=== PATIENT | female | born 1945 | race Caucasian/White ===

== ENCOUNTER 2019-05-06 14:46 | Emergency (ER) | payer MEDICARE, SELFPAY ==
[2019-05-06 15:10] VITALS: BP 196/113; PULSE 91; RESP 16; TEMP 36.8; O2SAT 98; BMI 22.4
[2019-05-06 15:48] LABS: Basophils % 0.3 %; Eosinophils % 0.2 %; Hematocrit 42.6 % (37.0-47.0); Hemoglobin 13.6 g/dL (11.5-15.3); Lymphocytes # 1.1 10^3/uL (0.8-4.8); Lymphocytes % 18.8 %; Mean Corpuscular HGB Conc 31.9 g/dL (30.0-36.0); Mean Corpuscular Hemoglobin 29.1 pg (28.0-34.0); Mean Corpuscular Volume 91.2 fL (81-99); Mean Platelet Volume 11.8 fL (7.4-10.4); Monocytes # 0.5 10^3/uL (0.2-0.9); Monocytes % 9.1 %; Neutrophils # 4.2 10^3/uL (1.8-7.7); Neutrophils % 71.4 %; Nucleated Red Blood Cells % 0 %; Platelet Count 178 10^3/cmm (130-400); Red Blood Count 4.67 10^6/uL (4.1-5.3); Red Cell Distribution Width 13.4 % (12.1-15.1); White Blood Count 5.9 10^3/uL (4.0-10.0)
[2019-05-06 16:01] LABS: Alanine Aminotransferase 19 U/L (0-33); Albumin Level 4.6 g/dL (3.5-5.2); Alkaline Phosphatase 122 IU/L (35-105); Anion Gap 16.3 (5-19); Aspartate Amino Transferase 34 U/L (0-32); Blood Urea Nitrogen 20 mg/dL (8-23); Calcium 10.7 mg/dL (8.5-10.5); Carbon Dioxide 28 mmol/L (22-29); Chloride 99 mmol/L (98-107); Globulin 3.3 g/dL (1.3-4.6); Glucose 113 mg/dL (65-115); Potassium 4.3 mmol/L (3.5-5.1); Sodium 139 mmol/L (136-145); Total Bilirubin 0.3 mg/dL (0.15-1.2); Total Protein 7.9 g/dL (6.6-8.7)
[2019-05-06 16:09] LABS: Add Urine Microscopic? YES; Bilirubin Urine Neg (NEGATIVE); Blood Urine 2+ (Negative); Glucose Urine UA Norm (Normal); Ketones Urine Negative (Negative); Leukocyte Esterase Urine Negative (Negative); Nitrate Urine Negative (Negative); Protein Urine Neg (Negative); Urine Appearance Clear (CLEAR); Urine Color Yellow (Yellow); Urobilinogen Urine Norm (Negative); pH Urine 5 (5-7)
[2019-05-06 16:12] LABS: Add Urine Culture? No; Bacteria Urine TRACE; Mucus Urine 1+; RBC Urine 0-4 /hpf (0-2); Squamous Epithelial Cell Urine 0-4 (0-5); WBC Urine 0-4 /hpf (0-5)
[2019-05-06 16:42] VITALS: BP 188/108; PULSE 78; RESP 16; O2SAT 96
--- NOTE | 2019-05-06 16:50 | ECG_ITS ---
Measurements Intervals [place] Rate: 80 P: 52 MI: 163 QRS: 46 QRSD: 86 T: 49 QT: 345 QTc: 398 SINUS RHYTHM No previous ECG available for comparison Electronically Signed On 05-06-2019 20:02:14 8TH GRADE TEACHER by Carson Burris M.D. [email or web address]
--- NOTE | 2019-05-06 16:50 | XRR_ITS ---
PROCEDURE INFORMATION: Exam: XR Chest, 1 View Exam date and time: 05/06/2019 5:45 PM Age: 73 years old Clinical indication: Other: Elevated blood pressure and heart rate; Additional info: Admission TECHNIQUE: Imaging protocol: XR of the chest Views: 1 view. COMPARISON: CR Chest 1 [place] [id number] 08/27/2014 2:50 PM FINDINGS: Lungs: Lungs are well aerated without a focal area of consolidation. Pleural space: Unremarkable. No pleural effusion. No pneumothorax. Heart/Mediastinum: The cardiac silhouette appears enlarged, some of which is magnification related to the AP projection. Bones/joints: Unremarkable. XR/XR chest 1V portable [id number] IMPRESSION: Lungs are well aerated without a focal area of consolidation.
--- NOTE | 2019-05-06 16:56 | ED_ITS ---
Documented by User: KIRTI Patterson 05/06/19 16:59 HPI - General Adult General: Chief complaint: General Medical Stated complaint: Blood pressure is high Time Seen by Provider: 05/06/19 16:49 History of Present Illness: HPI narrative: Patient comes in complains of high blood pressure. No history of high blood pressure does have a sister and dad of heart attack. Patient is on cholesterol medicine. She denies any chest pain shortness of breath. She used to be a smoker quit 10 years ago has not checked her blood pressure a lot a years either MD complaint: htn Onset (ago): hour(s) Severity: mild Associated symptoms: Reports no associated symptoms; Deny chest pain, dyspnea, headache(s), nausea, rash or vomiting Review of Systems Const: Denies: fever, chills or body aches Eyes: Denies: change in vision or blurry vision ENMT: Denies: throat pain or nasal congestion Card: Reports: other (High blood pressure); Denies: chest pain or shortness of breath on exertion Resp: Denies: shortness of breath, productive cough or non-productive cough GI: Denies: abdominal pain, nausea or vomiting Musc: Denies: extremity pain Skin/Breast: Denies: rash Neuro: Denies: headache Psych: Denies: anxiety or depression Eliezer/Lymph: Denies: easy bruising PFSH ED PFSH: Statuses (acute, chronic, etc) shown below reflect problem list status as previously entered and may not be historically accurate Social History Smoking and tobacco status: former smoker Physical Exam Const: COMMON NORMALS: no apparent distress, average body habitus and oriented x3 HENMT: COMMON NORMALS: normocephalic HEAD & SCALP: normal to inspection and normocephalic FACE & SINUS: normal facial exam Eye: COMMON NORMALS: conjunctivae normal GENERAL EYE: normal appearance of both eyes CONJUNCTIVA: Yes conjunctivae normal Neck/C-Spine: COMMON NORMALS: no JVD Chest: COMMONS NORMALS: inspection of chest normal Resp: COMMON NORMALS: normal respiratory effort and clear to auscultation bilaterally AUSCULTATION: clear to auscultation bilaterally Cardio: COMMON NORMALS: no JVD, regular rate and regular rhythm RATE: regular rate RHYTHM: regular rhythm GI: COMMON NORMALS: normal to inspection, nondistended, normoactive bowel sounds Extremity: COMMON NORMALS: normal to inspection and full ROM Neuro: COMMON NORMALS: oriented x3 Course Vital Signs: Vital signs: Vital Signs Temperature 98.2 F 05/06/19 15:10 Pulse Rate 70 05/06/19 18:48 Respiratory Rate 16 05/06/19 18:48 Blood Pressure 136/73 05/06/19 18:48 Pulse Oximetry 98 05/06/19 18:48 [facility] - General Adult Lab Data: Labs: Lab Results 05/06/19 05/06/19 05/06/19 Range/Units 15:15 15:40 15:40 WBC 5.9 (4.0-10.0) 10^3/ uL RBC 4.67 (4.1-5.3) 10^6/u L Hgb 13.6 (11.5-15.3) g/dL Hct 42.6 (37.0-47.0) % MCV 91.2 (81-99) fL MCH 29.1 (28.0-34.0) pg MCHC 31.9 (30.0-36.0) g/dL RDW 13.4 (12.1-15.1) % Plt Count 178 (130-400) 10^3/c mm MPV 11.8 H (7.4-10.4) fL Neut % (Auto) 71.4 % Lymph % (Auto) 18.8 % Jones % (Auto) 9.1 % Eos % (Auto) 0.2 % Baso % (Auto) 0.3 % Neut # (Auto) 4.2 (1.8-7.7) 10^3/u L Lymph # (Auto) 1.1 (0.8-4.8) 10^3/u L Jones # (Auto) 0.5 (0.2-0.9) 10^3/u L Eos # (Auto) 0.0 (0.0-0.8) 10^3/u L Baso # (Auto) 0.0 (0.0-0.1) 10^3/u L Nucleated RBC % (a uto) 0 % Nucleated RBCs # 0.0 /100WBC Sodium 139 (136-145) mmol/L Potassium 4.3 (3.5-5.1) mmol/L Chloride 99 (98-107) mmol/L Carbon Dioxide 28 (22-29) mmol/L Anion Gap 16.3 (5-19) BUN 20 (8-23) mg/dL Creatinine 0.9 (0.5-0.9) mg/dL Glucose 113 (65-115) mg/dL Calcium 10.7 H (8.5-10.5) mg/dL Total Bilirubin 0.3 (0.15-1.2) mg/dL AST 34 H (0-32) U/L ALT 19 (0-33) U/L Alkaline Phosphata se 122 H (35-105) IU/L Total Protein 7.9 (6.6-8.7) g/dL Albumin 4.6 (3.5-5.2) g/dL Globulin 3.3 (1.3-4.6) g/dL Urine Color Yellow (Yellow) Urine Appearance Clear (CLEAR) Urine pH 5 (5-7) Ur Specific Gravit y 1.020 (1.005-1.030) Urine Protein Neg (Negative) Urine Glucose (UA) Norm (Normal) Urine Ketones Negative (Negative) Urine Occult Blood 2+ H (Negative) Urine Nitrate Negative (Negative) Urine Bilirubin Neg (NEGATIVE) Urine Urobilinogen Norm (Negative) mg/dL Ur Leukocyte Sandra ase Negative (Negative) Urine RBC 0-4 H (0-2) /hpf Urine WBC 0-4 H (0-5) /hpf Ur Squamous Epith Cells 0-4 H (0-5) Urine Bacteria Trace (NONE) Urine Mucus 1+ Discharge Plan Discharge Patient Disposition: Home, Self-Care Clinical Impression: Hypertension Qualifiers: Hypertension type: essential hypertension Qualified Code(s): I10 - Essential (primary) hypertension Condition: Stable Prescriptions: New hydrochlorothiazide 25 mg tablet 25 mg PO DAILY Qty: 30 RF: 0 No Action tizanidine 4 mg tablet 4 mg PO TID PRN (Reason: Pain) RF: 0 naproxen sodium 220 mg Capsule 220 mg PO BID PRN (Reason: Pain) RF: 0 Discharge Orders: Discharge Order (Routine); Ordered 05/06/19 Ordered By: Tony Boone Referrals: Pipo Rocha DO [Family Provider] - Discharge Diet: Regular Discharge Activity: Resume usual activity Patient Instructions: Hypertension (ED) Activity Restrictions/Additional Instructions: Follow-up with PCP in 7 days for reevaluation. Take prescription of hydrochlorothiazide as prescribed. Take your blood pressure multiple times a day and keep a log. Teacher and drink plenty of fluids and stay hydrated. Discharge Date/Time: 05/06/19 18:49 Sign Out Sign Out Data: Patient Sign Out occurred on 05/06/19 at 17:10. Patient's care was discussed, and care was transferred from to CIRA Golden. Coding Level of Care Code ED Director Of Strategic Sourcing for Chg Fwd Exam Problem Focused Documented by User: CIRA Golden 05/07/19 02:47 HPI - General Adult General: Chief complaint: General Medical Stated complaint: Blood pressure is high Time Seen by Provider: 05/06/19 16:49 PFSH ED PFSH: Statuses (acute, chronic, etc) shown below reflect problem list status as previously entered and may not be historically accurate Social History Smoking and tobacco status: former smoker Course Vital Signs: Vital signs: Vital Signs Temperature 98.2 F 05/06/19 15:10 Pulse Rate 70 05/06/19 18:48 Respiratory Rate 16 05/06/19 18:48 Blood Pressure 136/73 05/06/19 18:48 Pulse Oximetry 98 05/06/19 18:48 MDM - General Adult Lab Data: Attestation: I reviewed the patient's lab results. Labs: Lab Results 05/06/19 05/06/19 05/06/19 Range/Units 15:15 15:40 15:40 WBC 5.9 (4.0-10.0) 10^3/ uL RBC 4.67 (4.1-5.3) 10^6/u L Hgb 13.6 (11.5-15.3) g/dL Hct 42.6 (37.0-47.0) % MCV 91.2 (81-99) fL MCH 29.1 (28.0-34.0) pg MCHC 31.9 (30.0-36.0) g/dL RDW 13.4 (12.1-15.1) % Plt Count 178 (130-400) 10^3/c mm MPV 11.8 H (7.4-10.4) fL Neut % (Auto) 71.4 % Lymph % (Auto) 18.8 % Jones % (Auto) 9.1 % Eos % (Auto) 0.2 % Baso % (Auto) 0.3 % Neut # (Auto) 4.2 (1.8-7.7) 10^3/u L Lymph # (Auto) 1.1 (0.8-4.8) 10^3/u L Jones # (Auto) 0.5 (0.2-0.9) 10^3/u L Eos # (Auto) 0.0 (0.0-0.8) 10^3/u L Baso # (Auto) 0.0 (0.0-0.1) 10^3/u L Nucleated RBC % (a uto) 0 % Nucleated RBCs # 0.0 /100WBC Sodium 139 (136-145) mmol/L Potassium 4.3 (3.5-5.1) mmol/L Chloride 99 (98-107) mmol/L Carbon Dioxide 28 (22-29) mmol/L Anion Gap 16.3 (5-19) BUN 20 (8-23) mg/dL Creatinine 0.9 (0.5-0.9) mg/dL Glucose 113 (65-115) mg/dL Calcium 10.7 H (8.5-10.5) mg/dL Total Bilirubin 0.3 (0.15-1.2) mg/dL AST 34 H (0-32) U/L ALT 19 (0-33) U/L Alkaline Phosphata se 122 H (35-105) IU/L Total Protein 7.9 (6.6-8.7) g/dL Albumin 4.6 (3.5-5.2) g/dL Globulin 3.3 (1.3-4.6) g/dL Urine Color Yellow (Yellow) Urine Appearance Clear (CLEAR) Urine pH 5 (5-7) Ur Specific Gravit y 1.020 (1.005-1.030) Urine Protein Neg (Negative) Urine Glucose (UA) Norm (Normal) Urine Ketones Negative (Negative) Urine Occult Blood 2+ H (Negative) Urine Nitrate Negative (Negative) Urine Bilirubin Neg (NEGATIVE) Urine Urobilinogen Norm (Negative) mg/dL Ur Leukocyte Sandra ase Negative (Negative) Urine RBC 0-4 H (0-2) /hpf Urine WBC 0-4 H (0-5) /hpf Ur Squamous Epith Cells 0-4 H (0-5) Urine Bacteria Trace (NONE) Urine Mucus 1+ EKG Data^: EKG 1: Attestation: I personally reviewed and interpreted this EKG as follows: EKG interpretation date: 05/06/19 EKG interpretation time: 17:26 Interpretation: normal sinus, 80bpm, no ST elevation or depression. P waves present. Computer generated interpretation: Normal Sinus Discharge Plan Discharge Patient Disposition: Home, Self-Care Clinical Impression: Hypertension Qualifiers: Hypertension type: essential hypertension Qualified Code(s): I10 - Essential (primary) hypertension Condition: Stable Prescriptions: New hydrochlorothiazide 25 mg tablet 25 mg PO DAILY Qty: 30 RF: 0 No Action tizanidine 4 mg tablet 4 mg PO TID PRN (Reason: Pain) RF: 0 naproxen sodium 220 mg Capsule 220 mg PO BID PRN (Reason: Pain) RF: 0 Discharge Orders: Discharge Order (Routine); Ordered 05/06/19 Ordered By: Tony Boone Referrals: Pipo Rocha, [Family Provider] - Discharge Diet: Regular Discharge Activity: Resume usual activity Patient Instructions: Hypertension (ED) Activity Restrictions/Additional Instructions: Follow-up with PCP in 7 days for reevaluation. Take prescription of hydrochlorothiazide as prescribed. Take your blood pressure multiple times a day and keep a log. Teacher and drink plenty of fluids and stay hydrated. Discharge Date/Time: 05/06/19 18:49 Sign Out Sign Out Data: Patient Sign Out occurred on 05/06/19 at 17:10. Patient's care was discussed, and care was transferred from to CIRA Golden. Coding Level of Care Code ED Director Of Strategic Sourcing for Chg Fwd Exam Problem Focused
[2019-05-06 17:15] VITALS: BP 178/99
[2019-05-06] MEDS: cloNIDine 0.1 mg Tablet 0.2 MG PO (17:15)
[2019-05-06 18:48] VITALS: BP 136/73; PULSE 70; RESP 16; O2SAT 98
== END 2019-05-06 18:49 | disposition home or self-care (01) ==
PROVIDERS: Family Medicine; Emergency Provider Physician Assistant; Family Provider Electrodiagnostic Medicine
DX: I10 Essential (primary) hypertension (principal); Z87.891 Personal history of nicotine dependence; Z82.49 Family history of ischemic heart disease and other diseases of the circulatory system
CPT/HCPCS: 36415; 71045; 80053; 81001; 85025; 93005; 99281; 99283

== ENCOUNTER 2019-05-11 03:21 | Emergency (ER) | payer MEDICARE, SELFPAY ==
[2019-05-11 03:29] VITALS: BP 157/82; PULSE 72; RESP 16; TEMP 36.6; O2SAT 99; BMI 22.4
--- NOTE | 2019-05-11 03:40 | ECG_ITS ---
Measurements Intervals [place] Rate: 58 P: 66 HI: 194 QRS: 60 QRSD: 110 T: 59 QT: 445 QTc: 437 SINUS BRADYCARDIA POSSIBLE INFERIOR MYOCARDIAL INFARCTION [30 ms Q WAVE IN II/aVF], OF IN INDETERMINATE AGE Compared to ECG 05/06/2019 17:20:18 Myocardial infarct finding now present Sinus rhythm no longer present Electronically Signed On 05-11-2019 9:13:56 [employer] SPRAYER HELPER by Jose Guadalupe Gramajo M.D. [id number]
--- NOTE | 2019-05-11 03:41 | ED_ITS ---
Entered by Kristina Barrow, acting as scribe for Marlys Johnson Documented by User: Marlys Johnson 05/11/19 05:40 HPI - Nausea/Vomiting/Diarrhea General: Chief complaint: Nausea/Vomiting/Diarrhea Stated complaint: headache/nausea Time Seen by Provider: 05/11/19 03:34 Source: patient and family Mode of arrival: ambulatory History of Present Illness: HPI Narrative: 73 y/o female presents to the ED with complaint of N/V. Pt states she had a syncopal episode around 0100 and now has a CASTRO. Pt states she started a new medication that she thinks has dehydrated her. She denies any injuries from the fall including her headache. She states she just has a mild headache. She denies any injuries, visual changes or otherwise. She started hydrochlorothiazide [address] Rocha. elicited complaint: nausea and vomiting Onset (ago): hour(s) (2) Associated nausea: Yes Associated abdominal pain: No Severity: mild Context: new medication Associated symtoms: Reports headache(s), nausea and syncope; Denies altered mental status, change in vision, chest pain, diaphoresis, dysuria, fatigue, malaise or palpitations Review of Systems General: Reports: other (negative unless marked) Const: Denies: fever, chills, body aches, fatigue, malaise or diaphoresis Eyes: Denies: change in vision or blurry vision ENMT: Denies: throat pain, painful swallowing, hoarseness, ear pain, ear discharge, Change in hearing or nasal discharge Card: Reports: syncope; Denies: chest pain, palpitations, irregular heart rhythm, pre-syncope, shortness of breath on exertion or shortness of breath when lying down Resp: Denies: shortness of breath, productive cough, non-productive cough, wheezing, coughing up blood or chest congestion GI: Reports: nausea; Denies: abdominal pain, vomiting, vomiting blood, coffee grounds in vomit, diarrhea, constipation, cramping, blood in stool or black tarry stool : Denies: flank pain, painful urination, urinary frequency, urinary urgency, decreased urine ouput, urinary incontinence or blood in urine Musc: Denies: neck pain, back pain, extremity pain, extremity swelling, joint pain, joint swelling, joint warmth or joint stiffness Skin/Breast: Denies: rash, skin tenderness or yellow skin Neuro: Reports: headache Eliezer/Lymph: Denies: easy bruising, easy bleeding, petechiae or enlarged lymph nodes All/Imm: Denies: hives, throat swelling, tongue swelling, facial swelling or acute wheezing PFSH ED PFSH: Social History Smoking and tobacco status: former smoker Physical Exam Const: COMMON NORMALS: no apparent distress, oriented x3, no limitations, healthy appearing and well nourished EXAM LIMITATIONS: no altered mental status GENERAL APPEARANCE: cooperative, well kempt and well developed ORIENTATION/CONSCIOUSNESS: Yes awake HENMT: COMMON NORMALS: normocephalic, head/scalp atraumatic, hearing grossly normal bilaterally, external ears normal, EAC's normal and external nose normal HEAD & SCALP: normal to inspection, normocephalic and atraumatic FACE & SINUS: normal facial exam and face symmetric NOSE: external nose normal and nares normal EXTERNAL EAR: Yes external ears normal EXTERNAL AUDITORY CANAL: EAC's normal Eye: COMMON NORMALS: PERRL, EOMs intact bilaterally, conjunctivae normal and no scleral icterus GENERAL EYE: normal appearance of both eyes and normal light reflex CONJUNCTIVA: Yes conjunctivae normal SCLERA: sclerae normal CORNEA: Yes corneas normal PUPIL: Yes PERRL DIRECT OPHTHALMOSCOPY: Yes normal light reflex Neck/C-Spine: COMMON NORMALS: full ROM, no lymphadenopathy, supple, no meningeal signs and no JVD GENERAL: Yes normal visual inspection and Yes trachea midline CERVICAL SPINE: Yes cervical ROM normal Chest: COMMONS NORMALS: inspection of chest normal and palpation of chest normal Resp: COMMON NORMALS: normal respiratory effort, no retractions, no use of accessory muscles and clear to auscultation bilaterally EFFORT & INSPECTION: Yes able to speak in complete sentences AUSCULTATION: clear to auscultation bilaterally Cardio: COMMON NORMALS: no JVD, regular rate, regular rhythm, S1 normal heart sound, S2 normal heart sound, no gallops, no clicks, no murmurs and no rub JUGULAR VENOUS DISTENTION: no JVD RATE: regular rate RHYTHM: regular rhythm HEART SOUNDS: S1 normal and S2 normal GI: COMMON NORMALS: soft to palpation, non-tender, no hepatosplenomegaly and no masses INSPECTION: Yes normal to inspection PALPATION: Yes soft and Yes no hepatosplenomegaly : COMMON NORMALS: Yes no CVA tenderness BLADDER/KIDNEY EXAM: Yes no CVA tenderness Back/Pelvis: COMMON NORMALS: no CVA tenderness, thoracic and lumbar spine normal to inspection, no thoracic nor lumbar tenderness and thoraco-lumbar ROM normal Extremity: COMMON NORMALS: normal to inspection, full ROM, normal capillary refill, no joint enlargement, no clubbing, cyanosis or edema and no calf t enderness Neuro: COMMON NORMALS: oriented x3, CN's II-XII intact bilaterally, moves all extremities, no focal motor deficits and no sensory deficits noted MENINGEAL SIGNS: Yes no meningeal signs Psych: COMMON NORMALS: mental status grossly normal, thought process normal, cooperative, affect normal, speech normal and activity/motor behavior normal APPEARANCE: Yes well kempt SPEECH: Yes normal speech THOUGHT PROCESS: normal thought process Skin: COMMON NORMALS: no rashes or lesions noted, skin turgor normal, no jaundice, no petechiae and no mottling GENERAL SKIN EXAM: no rashes or lesions noted and turgor normal Course Vital Signs: Vital signs: Vital Signs Temperature 98 F 05/11/19 03:29 Pulse Rate 70 05/11/19 07:16 Respiratory Rate 20 H 05/11/19 07:16 Blood Pressure 152/81 05/11/19 07:16 Pulse Oximetry 99 05/11/19 07:16 MDM - Nausea/Vomiting/Diarrhea MDM Narrative: Medical decision making narrative: Zhanna is a nice 73-year-old female who comes in with a syncopal spell after recently starting hydrochlorothiazide. She is orthostatic and slightly hyponatremic. I believe this is likely an acute change so we will give her 2 L normal saline and repeat her orthostatic vital signs. She does not want to go back on the hydrochlorothiazide but agrees to follow-up with Dr. Rocha for reevaluation. She has no chest pain or shortness of breath and is feeling better with IV fluids at this time. Lab Data: Attestation: I reviewed the patient's lab results. Labs: Lab Results 05/11/19 05/11/19 05/11/19 Range/Units 04:06 04:06 04:06 WBC 6.8 (4.0-10.0) 10^3/ uL RBC 4.26 (4.1-5.3) 10^6/u L Hgb 12.7 (11.5-15.3) g/dL Hct 38.5 (37.0-47.0) % MCV 90.4 (81-99) fL MCH 29.8 (28.0-34.0) pg MCHC 33.0 (30.0-36.0) g/dL RDW 12.8 (12.1-15.1) % Plt Count 158 (130-400) 10^3/c mm MPV 12.1 H (7.4-10.4) fL Neut % (Auto) 66.5 % Lymph % (Auto) 21.6 % [place] % (Auto) 9.8 % Eos % (Auto) 1.2 % Baso % (Auto) 0.6 % Neut # (Auto) 4.6 (1.8-7.7) 10^3/u L Lymph # (Auto) 1.5 (0.8-4.8) 10^3/u L [place] # (Auto) 0.7 (0.2-0.9) 10^3/u L Eos # (Auto) 0.1 (0.0-0.8) 10^3/u L Baso # (Auto) 0.0 (0.0-0.1) 10^3/u L Nucleated RBC % (a uto) 0 % Nucleated RBCs # 0.0 /100WBC Sodium 128 L (136-145) mmol/L Potassium 3.5 (3.5-5.1) mmol/L Chloride 88 L (98-107) mmol/L Carbon Dioxide 26 (22-29) mmol/L Anion Gap 17.5 (5-19) BUN 19 (8-23) mg/dL Creatinine 0.6 (0.5-0.9) mg/dL Glucose 134 H (65-115) mg/dL Calculated Osmolal ity (285-295) mOsm/k g Calcium 10.2 (8.5-10.5) mg/dL Total Bilirubin 0.4 (0.15-1.2) mg/dL AST 31 (0-32) U/L ALT 14 (0-33) U/L Alkaline Phosphata se 102 (35-105) IU/L Troponin T Baselin e 8 (0-10) ng/mL Troponin T 120 Min antonella (0-10) ng/mL Delta Troponin T (0-10) ABS# Total Protein 7.1 (6.6-8.7) g/dL Albumin 3.8 (3.5-5.2) g/dL Globulin 3.3 (1.3-4.6) g/dL Lipase 37 (13-60) U/L Urine Color (Yellow) Urine Appearance (CLEAR) Urine pH (5-7) Ur Specific Gravit y (1.005-1.030) Urine Protein (Negative) Urine Glucose (UA) (Normal) Urine Ketones (Negative) Urine Occult Blood (Negative) Urine Nitrate (Negative) Urine Bilirubin (NEGATIVE) Urine Urobilinogen (Negative) mg/dL Ur Leukocyte Sandra ase (Negative) Urine RBC (0-2) /hpf Urine WBC (0-5) /hpf Ur Squamous Epith Cells (0-5) Urine Bacteria (NONE) Hyaline Casts Urine Mucus 05/11/19 05/11/19 05/11/19 Range/Units 05:00 06:24 07:07 WBC (4.0-10.0) 10^3/ uL RBC (4.1-5.3) 10^6/u L Hgb (11.5-15.3) g/dL Hct (37.0-47.0) % MCV (81-99) fL MCH (28.0-34.0) pg MCHC (30.0-36.0) g/dL RDW (12.1-15.1) % Plt Count (130-400) 10^3/c mm MPV (7.4-10.4) fL Neut % (Auto) % Lymph % (Auto) % [place] % (Auto) % Eos % (Auto) % Baso % (Auto) % Neut # (Auto) (1.8-7.7) 10^3/u L Lymph # (Auto) (0.8-4.8) 10^3/u L [place] # (Auto) (0.2-0.9) 10^3/u L Eos # (Auto) (0.0-0.8) 10^3/u L Baso # (Auto) (0.0-0.1) 10^3/u L Nucleated RBC % (a uto) % Nucleated RBCs # /100WBC Sodium 131 L (136-145) mmol/L Potassium 4.0 (3.5-5.1) mmol/L Chloride 96 L (98-107) mmol/L Carbon Dioxide 25 (22-29) mmol/L Anion Gap 14.0 (5-19) BUN 15 (8-23) mg/dL Creatinine 0.5 (0.5-0.9) mg/dL Glucose 107 (65-115) mg/dL Calculated Osmolal ity 269 L (285-295) mOsm/k g Calcium 8.9 (8.5-10.5) mg/dL Total Bilirubin (0.15-1.2) mg/dL AST (0-32) U/L ALT (0-33) U/L Alkaline Phosphata se (35-105) IU/L Troponin T Baselin e (0-10) ng/mL Troponin T 120 Min antonella 10.59 H (0-10) ng/mL Delta Troponin T 2.59 (0-10) ABS# Total Protein (6.6-8.7) g/dL Albumin (3.5-5.2) g/dL Globulin (1.3-4.6) g/dL Lipase (13-60) U/L Urine Color Yellow (Yellow) Urine Appearance Clear (CLEAR) Urine pH 7 (5-7) Ur Specific Gravit y 1.010 (1.005-1.030) Urine Protein Neg (Negative) Urine Glucose (UA) Norm (Normal) Urine Ketones Negative (Negative) Urine Occult Blood 2+ H (Negative) Urine Nitrate Negative (Negative) Urine Bilirubin Neg (NEGATIVE) Urine Urobilinogen Norm (Negative) mg/dL Ur Leukocyte Sandra ase Negative (Negative) Urine RBC 5-10 H (0-2) /hpf Urine WBC 0-4 H (0-5) /hpf Ur Squamous Epith Cells 0-4 H (0-5) Urine Bacteria Trace (NONE) Hyaline Casts Rare Urine Mucus Trace EKG Data^: EKG 1: Attestation: I personally reviewed and interpreted this EKG as follows: EKG interpretation date: 05/11/19 EKG interpretation time: 04:07 Interpretation: Sinus rhythm at 60 beats a minute, probable benign early repolarization. Change from previous. EKGs confirmed with Dr. Gramajo. EKG 2: Attestation: I personally reviewed and interpreted this EKG as follows: EKG interpretation date: 05/11/19 EKG interpretation time: 04:20 Interpretation: Normal sinus rhythm at 58 beats a minute, benign early repolarization, confirmed with Dr. Gramajo. Discharge Plan Discharge Patient Disposition: Home, Self-Care Clinical Impression: Hyponatremia, Syncope Condition: Stable Prescriptions: No Action atorvastatin 20 mg tablet 20 mg PO DAILY RF: 0 tizanidine 4 mg tablet 4 mg PO TID PRN (Reason: Pain) RF: 0 naproxen sodium 220 mg Capsule 220 mg PO BID PRN (Reason: Pain) RF: 0 hydrochlorothiazide 25 mg tablet 25 mg PO DAILY Qty: 30 RF: 0 Discharge Orders: Discharge Order (Routine); Ordered 05/11/19 Ordered By: Denilson Griggs Referrals: Pipo Rocha DO [Family Provider] - 4-7 days Discharge Diet: Advance as tolerated Discharge Activity: Resume usual activity Patient Instructions: Hyponatremia (ED) Coding Level of Care Code ED Automotive Sales Associate for Chg Fwd Exam Comprehensive Documented by User: Denilson Griggs MD 05/11/19 07:43 HPI - Nausea/Vomiting/Diarrhea General: Chief complaint: Nausea/Vomiting/Diarrhea Stated complaint: headache/nausea Time Seen by Provider: 05/11/19 03:34 PFS ED PFSH: Social History Smoking and tobacco status: former smoker Course Vital Signs: Vital signs: Vital Signs Temperature 98 F 05/11/19 03:29 Pulse Rate 70 05/11/19 07:16 Respiratory Rate 20 H 05/11/19 07:16 Blood Pressure 152/81 05/11/19 07:16 Pulse Oximetry 99 05/11/19 07:16 MDM - Nausea/Vomiting/Diarrhea MDM Narrative: Medical decision making narrative: I took patient over from Dr. Navarrete. Patient has syncopal event and hyponatremia likely from her HCTZ. She feels much improved here after IV fluids. She is to stop her hydrochlorothiazide and is stable for discharge. Patient is to follow-up with primary care doctor in 3 to 5 days return if worsening. Lab Data: Labs: Lab Results 05/11/19 05/11/19 05/11/19 Range/Units 04:06 04:06 04:06 WBC 6.8 (4.0-10.0) 10^3/ uL RBC 4.26 (4.1-5.3) 10^6/u L Hgb 12.7 (11.5-15.3) g/dL Hct 38.5 (37.0-47.0) % MCV 90.4 (81-99) fL MCH 29.8 (28.0-34.0) pg MCHC 33.0 (30.0-36.0) g/dL RDW 12.8 (12.1-15.1) % Plt Count 158 (130-400) 10^3/c mm MPV 12.1 H (7.4-10.4) fL Neut % (Auto) 66.5 % Lymph % (Auto) 21.6 % [place] % (Auto) 9.8 % Eos % (Auto) 1.2 % Baso % (Auto) 0.6 % Neut # (Auto) 4.6 (1.8-7.7) 10^3/u L Lymph # (Auto) 1.5 (0.8-4.8) 10^3/u L [place] # (Auto) 0.7 (0.2-0.9) 10^3/u L Eos # (Auto) 0.1 (0.0-0.8) 10^3/u L Baso # (Auto) 0.0 (0.0-0.1) 10^3/u L Nucleated RBC % (a uto) 0 % Nucleated RBCs # 0.0 /100WBC Sodium 128 L (136-145) mmol/L Potassium 3.5 (3.5-5.1) mmol/L Chloride 88 L (98-107) mmol/L Carbon Dioxide 26 (22-29) mmol/L Anion Gap 17.5 (5-19) BUN 19 (8-23) mg/dL Creatinine 0.6 (0.5-0.9) mg/dL Glucose 134 H (65-115) mg/dL Calculated Osmolal ity (285-295) mOsm/k g Calcium 10.2 (8.5-10.5) mg/dL Total Bilirubin 0.4 (0.15-1.2) mg/dL AST 31 (0-32) U/L ALT 14 (0-33) U/L Alkaline Phosphata se 102 (35-105) IU/L Troponin T Baselin e 8 (0-10) ng/mL Troponin T 120 Min antonella (0-10) ng/mL Delta Troponin T (0-10) ABS# Total Protein 7.1 (6.6-8.7) g/dL Albumin 3.8 (3.5-5.2) g/dL Globulin 3.3 (1.3-4.6) g/dL Lipase 37 (13-60) U/L Urine Color (Yellow) Urine Appearance (CLEAR) Urine pH (5-7) Ur Specific Gravit y (1.005-1.030) Urine Protein (Negative) Urine Glucose (UA) (Normal) Urine Ketones (Negative) Urine Occult Blood (Negative) Urine Nitrate (Negative) Urine Bilirubin (NEGATIVE) Urine Urobilinogen (Negative) mg/dL Ur Leukocyte Sandra ase (Negative) Urine RBC (0-2) /hpf Urine WBC (0-5) /hpf Ur Squamous Epith Cells (0-5) Urine Bacteria (NONE) Hyaline Casts Urine Mucus 05/11/19 05/11/19 05/11/19 Range/Units 05:00 06:24 07:07 WBC (4.0-10.0) 10^3/ uL RBC (4.1-5.3) 10^6/u L Hgb (11.5-15.3) g/dL Hct (37.0-47.0) % MCV (81-99) fL MCH (28.0-34.0) pg MCHC (30.0-36.0) g/dL RDW (12.1-15.1) % Plt Count (130-400) 10^3/c mm MPV (7.4-10.4) fL Neut % (Auto) % Lymph % (Auto) % [place] % (Auto) % Eos % (Auto) % Baso % (Auto) % Neut # (Auto) (1.8-7.7) 10^3/u L Lymph # (Auto) (0.8-4.8) 10^3/u L [place] # (Auto) (0.2-0.9) 10^3/u L Eos # (Auto) (0.0-0.8) 10^3/u L Baso # (Auto) (0.0-0.1) 10^3/u L Nucleated RBC % (a uto) % Nucleated RBCs # /100WBC Sodium 131 L (136-145) mmol/L Potassium 4.0 (3.5-5.1) mmol/L Chloride 96 L (98-107) mmol/L Carbon Dioxide 25 (22-29) mmol/L Anion Gap 14.0 (5-19) BUN 15 (8-23) mg/dL Creatinine 0.5 (0.5-0.9) mg/dL Glucose 107 (65-115) mg/dL Calculated Osmolal ity 269 L (285-295) mOsm/k g Calcium 8.9 (8.5-10.5) mg/dL Total Bilirubin (0.15-1.2) mg/dL AST (0-32) U/L ALT (0-33) U/L Alkaline Phosphata se (35-105) IU/L Troponin T Baselin e (0-10) ng/mL Troponin T 120 Min antonella 10.59 H (0-10) ng/mL Delta Troponin T 2.59 (0-10) ABS# Total Protein (6.6-8.7) g/dL Albumin (3.5-5.2) g/dL Globulin (1.3-4.6) g/dL Lipase (13-60) U/L Urine Color Yellow (Yellow) Urine Appearance Clear (CLEAR) Urine pH 7 (5-7) Ur Specific Gravit y 1.010 (1.005-1.030) Urine Protein Neg (Negative) Urine Glucose (UA) Norm (Normal) Urine Ketones Negative (Negative) Urine Occult Blood 2+ H (Negative) Urine Nitrate Negative (Negative) Urine Bilirubin Neg (NEGATIVE) Urine Urobilinogen Norm (Negative) mg/dL Ur Leukocyte Sandra ase Negative (Negative) Urine RBC 5-10 H (0-2) /hpf Urine WBC 0-4 H (0-5) /hpf Ur Squamous Epith Cells 0-4 H (0-5) Urine Bacteria Trace (NONE) Hyaline Casts Rare Urine Mucus Trace Discharge Plan Discharge Patient Disposition: Home, Self-Care Clinical Impression: Hyponatremia, Syncope Condition: Stable Prescriptions: No Action atorvastatin 20 mg tablet 20 mg PO DAILY RF: 0 tizanidine 4 mg tablet 4 mg PO TID PRN (Reason: Pain) RF: 0 naproxen sodium 220 mg Capsule 220 mg PO BID PRN (Reason: Pain) RF: 0 hydrochlorothiazide 25 mg tablet 25 mg PO DAILY Qty: 30 RF: 0 Discharge Orders: Discharge Order (Routine); Ordered 05/11/19 Ordered By: Denilson Griggs Referrals: Pipo Rocha DO [Family Provider] - 4-7 days Discharge Diet: Advance as tolerated Discharge Activity: Resume usual activity Patient Instructions: Hyponatremia (ED) Coding Level of Care Code ED Automotive Sales Associate for Chg Fwd Exam Comprehensive The documentation recorded by the Danial gómez Ashley, accurately reflects the service I personally performed and the decisions made by Alex dorantes Eli N May 11, 2019 03:21
[2019-05-11 04:18] LABS: Basophils % 0.6 %; Eosinophils # 0.1 10^3/uL (0.0-0.8); Eosinophils % 1.2 %; Hematocrit 38.5 % (37.0-47.0); Hemoglobin 12.7 g/dL (11.5-15.3); Lymphocytes # 1.5 10^3/uL (0.8-4.8); Lymphocytes % 21.6 %; Mean Corpuscular Hemoglobin 29.8 pg (28.0-34.0); Mean Corpuscular Volume 90.4 fL (81-99); Mean Platelet Volume 12.1 fL (7.4-10.4); Monocytes # 0.7 10^3/uL (0.2-0.9); Monocytes % 9.8 %; Neutrophils # 4.6 10^3/uL (1.8-7.7); Neutrophils % 66.5 %; Nucleated Red Blood Cells % 0 %; Platelet Count 158 10^3/cmm (130-400); Red Blood Count 4.26 10^6/uL (4.1-5.3); Red Cell Distribution Width 12.8 % (12.1-15.1); White Blood Count 6.8 10^3/uL (4.0-10.0)
[2019-05-11 04:29] VITALS: BP 158/82; PULSE 70; RESP 14; O2SAT 100
[2019-05-11 04:39] LABS: Alanine Aminotransferase 14 U/L (0-33); Albumin Level 3.8 g/dL (3.5-5.2); Alkaline Phosphatase 102 IU/L (35-105); Anion Gap 17.5 (5-19); Blood Urea Nitrogen 19 mg/dL (8-23); Calcium 10.2 mg/dL (8.5-10.5); Carbon Dioxide 26 mmol/L (22-29); Chloride 88 mmol/L (98-107); Globulin 3.3 g/dL (1.3-4.6); Glucose 134 mg/dL (65-115); Lipase 37 U/L (13-60); Potassium 3.5 mmol/L (3.5-5.1); Sodium 128 mmol/L (136-145); Total Bilirubin 0.4 mg/dL (0.15-1.2); Total Protein 7.1 g/dL (6.6-8.7)
[2019-05-11 04:41] LABS: Troponin(5th) Baseline 8 ng/mL (0-10)
--- NOTE | 2019-05-11 04:44 | PC.NURSE ---
Patient reports about 0100 this morning she got up to go to the restroom. Patient states in the restroom she got dizzy and passed out. Patient reports that she was out for a couple seconds she believes. Patient states she woke up very dizzy and sick to her stomach. Patient reports the only symptoms she has is weakness in her legs, nausea, and dizziness.
[2019-05-11 04:47] VITALS: BP 122/72; BP 151/86; BP 155/75; PULSE 57; PULSE 61; PULSE 68
[2019-05-11] MEDS: sodium chloride 0.9% 1,000 ML 999 ML IV (04:50)
[2019-05-11] MEDS: ondansetron 2 mg/ML SDV 2 mL 4 MG IVP (04:52)
[2019-05-11 04:56] LABS: Aspartate Amino Transferase 31 U/L (0-32)
[2019-05-11 05:36] LABS: Urine Appearance Clear (CLEAR); Urine Color Yellow (Yellow); pH Urine 7 (5-7)
[2019-05-11 05:37] LABS: Bilirubin Urine Neg (NEGATIVE); Blood Urine 2+ (Negative); Glucose Urine UA Norm (Normal); Ketones Urine Negative (Negative); Leukocyte Esterase Urine Negative (Negative); Nitrate Urine Negative (Negative); Protein Urine Neg (Negative); Urobilinogen Urine Norm (Negative)
[2019-05-11 05:38] LABS: Add Urine Culture? No; Bacteria Urine TRACE; Hyaline Casts Urine RARE; Mucus Urine TRACE; Squamous Epithelial Cell Urine 0-4 (0-5); WBC Urine 0-4 /hpf (0-5)
--- NOTE | 2019-05-11 05:40 | ECG_ITS ---
Measurements Intervals [place] Rate: 67 P: 69 IA: 188 QRS: 64 QRSD: 89 T: 51 QT: 444 QTc: 470 SINUS RHYTHM Compared to ECG 05/06/2019 17:20:18 No significant changes Electronically Signed On 05-11-2019 9:15:17 HEAD START ASSISTANT TEACHER by Jose Guadalupe Gramajo M.D. [id number]
[2019-05-11 05:46] VITALS: BP 142/80; PULSE 68; RESP 16; O2SAT 99
[2019-05-11 06:52] LABS: Troponin 5 2HR 10.59 ng/mL (0-10); Troponin 5 2HR Delta 2.59 ABS# (0-10)
[2019-05-11 07:16] VITALS: BP 152/81; PULSE 70; RESP 20; O2SAT 99
[2019-05-11 07:27] LABS: Blood Urea Nitrogen 15 mg/dL (8-23); Calcium 8.9 mg/dL (8.5-10.5); Carbon Dioxide 25 mmol/L (22-29); Chloride 96 mmol/L (98-107); Glucose 107 mg/dL (65-115); Osmolality Calculated 269 mOsm/kg (285-295); Sodium 131 mmol/L (136-145)
[2019-05-11 07:45] VITALS: BP 149/83; PULSE 66; RESP 16; O2SAT 99
== END 2019-05-11 07:45 | disposition home or self-care (01) ==
PROVIDERS: Emergency Medicine; Emergency Provider Emergency Medicine; Family Provider Electrodiagnostic Medicine
DX: E87.1 Hypo-osmolality and hyponatremia (principal); R55 Syncope and collapse; Z87.891 Personal history of nicotine dependence
CPT/HCPCS: 36415; 80048; 80053; 81001; 83690; 84484; 85025; 93005; 96360; 96361; 96374; 96375; 99284; A9270; J2405; J7030

== ENCOUNTER 2019-06-20 09:44 | Outpatient (CLI) | payer MEDICARE, SELFPAY ==
--- NOTE | 2019-06-20 10:15 | USCV_ITS ---
Zhanna Luis Age: 73 Gender: F : 1945 Exam Date: 06/20/2019 10:14 Ordering Phys: Pipo Rocha DO Technologist: Deborah Mcdaniels Exam Location: [facility] Indication: carotid stenosis Risk Factors: Previous Vascular Surgery: Right Brachial BP: / Left Brachial BP: / Right Left Velocity (cm/s) Spectral Plaque Velocity (cm/s) Spectral Plaque Syst/Diast Broadening Syst/Diast Broadening 78.30/ 16.50 Prox CCA 40.10 / 9.90 66.00/ 14.00 Mid CCA 45.40 / 15.80 36.50/ 13.20 Hetro Distal CCA 58.50 / 16.40 Hetro 63.90/ 14.30 Hetro Prox ICA 55.90 / 10.50 Hetro 87.10/ 28.70 Mid ICA 83.70 / 23.10 105.80/33.10 Distal ICA 94.80 / 25.40 82.70 ECA 1.60 ICA/CCA 1.62 Antegrade Vertebral Antegrade 48.20/ 18.60 cm/s 30.20/ 8.50 cm/s Tri Subclavian Tri 156.9 129.0 0 0 FINDINGS Comparison: none available. No significant elevation of systolic or diastolic velocities. Waveforms are normal. Mild atherosclerosis at the bifurcations. Bilateral vertebral arteries. CONCLUSIONS Bilateral ICA stenosis less than 50%. Dr. Jyoti Red DO (Electronically Signed) Final Date: 20 June 2019 12:31 S
== END 2019-06-20 09:45 | disposition home or self-care (01) ==
LOC: US 09:46
PROVIDERS: Family Provider Electrodiagnostic Medicine; PCP Electrodiagnostic Medicine; Visit Provider Electrodiagnostic Medicine
DX: I65.23 Occlusion and stenosis of bilateral carotid arteries (principal)
CPT/HCPCS: 93880

== ENCOUNTER 2021-03-07 16:00 | Outpatient (CLI) | payer MEDICARE, SELFPAY ==
--- NOTE | 2021-03-07 | XR_ITS ---
WS: [id number] XR hip RT 2-3V wo/w pel* [id number] REASON FOR EXAM: RT HIP PAIN FINDINGS: Near complete loss of the right hip joint space with marked subchondral sclerosis and cystic change i n the humeral head and acetabulum. Large superior osteophyte of the acetabulum. Right hip joint alignment shows medial/internal rotation of the femur. No fracture or dislocation. Mild arthropathic changes in the left hip joint with joint space narrowing and subchondral sclerosis. Remainder of the pelvis is unremarkable. Degenerative spondylosis in the lower lumbar spine. 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
== END 2021-03-07 16:01 | disposition home or self-care (01) ==
LOC: RAD 16:06
PROVIDERS: PCP Electrodiagnostic Medicine; Visit Provider Electrodiagnostic Medicine
DX: M16.11 Unilateral primary osteoarthritis, right hip (principal)
CPT/HCPCS: 73502

== ENCOUNTER 2021-08-03 13:46 | Emergency (ER) | payer MEDICARE, SELFPAY ==
[2021-08-03] VITALS (7 sets, daily range): BP systolic 117–202; BP diastolic 62–96; PULSE 53–81; RESP 12–19; TEMP 36.6; O2SAT 95–100; BMI 22.6
--- NOTE | 2021-08-03 13:59 | ECG_ITS ---
[facility] Test Date: 2021-08-03 Pat Name: Zhanna Luis Department: Room: Gender: Female Biology Adjunct Instructor: : 1945 Requested By: Landon Frankel Order Number: [id number] Caitlin MD: Stefanie Mancera M.D. Measurements Intervals [place] Rate: 53 P: 58 TN: 176 QRS: 73 QRSD: 81 T: 51 QT: 426 QTc: 400 Interpretive Statements SINUS BRADYCARDIA Compared to ECG 05/11/2019 06:18:21 Sinus rhythm no longer present Electronically Signed On 08-03-2021 22:33:28 CDT by Stefanie Mancera M.D. [id number]
--- NOTE | 2021-08-03 14:00 | XRR_ITS ---
PROCEDURE INFORMATION: Exam: XR Chest Exam date and time: 08/03/2021 2:18 PM Age: 75 years old Clinical indication: Chest pain. Angina pectoris. TECHNIQUE: Imaging protocol: XR of the chest. Views: 1 view. COMPARISON: CR XR chest 1V portable [id number] 05/06/2019 5:35 PM FINDINGS: Lungs: Minimal scarring at the left base. No dennis consolidation is appreciated. Possible tiny nodule in the right apex. Pleural spaces: No pleural effusion. No pneumothorax. Heart/Mediastinum: Apparent worsening cardiomegaly. No gross evidence of pneumomediastinum. Bones/joints: No gross fracture. XR/XR chest 1V portable [id number] IMPRESSION: 1. Apparent worsening cardiomegaly. 2. Possible tiny nodule in the right apex. 3. Recommend CT chest to better characterize. This could be obtained on a nonemergent basis.
[2021-08-03 14:43] LABS: Basophils % 0.8 %; Eosinophils # 0.1 10^3/uL (0.0-0.8); Eosinophils % 1.3 %; Hematocrit 40.9 % (37.0-47.0); Hemoglobin 12.8 g/dL (11.5-15.3); Lymphocytes # 1.5 10^3/uL (0.8-4.8); Lymphocytes % 31.7 %; Mean Corpuscular HGB Conc 31.3 g/dL (30.0-36.0); Mean Corpuscular Hemoglobin 28.8 pg (28.0-34.0); Mean Corpuscular Volume 92.1 fl (81-99); Mean Platelet Volume 12.5 fL (7.4-10.4); Monocytes # 0.6 10^3/uL (0.2-0.9); Monocytes % 11.6 %; Neutrophils # 2.57 10^3/uL (1.8-7.7); Neutrophils % 54.4 %; Nucleated Red Blood Cells % 0 %; Platelet Count 157 10^3/cmm (130-400); Red Blood Count 4.44 10^6/uL (4.1-5.3); Red Cell Distribution Width 13.8 % (12.1-15.1); White Blood Count 4.7 10^3/uL (4.0-10.0)
--- NOTE | 2021-08-03 14:58 | ED_ITS ---
HPI - Chest Pain General: Chief Complaint: Chest Pain Stated Complaint: Abnormal BP and chest discomfort Time Seen by Provider: 08/03/21 13:58 Source: patient Mode of arrival: ambulatory Limitations: no limitations History of Present Illness: 76-year-old female presents emergency room complaining of left chest which she describes as cramping beneath her breast radiates intermittently is not numb feeling in her arm blood pressure is markedly elevated she usually takes carvedilol and losartan. She does not have any associated dyspnea or diaphoresis or nausea. She has not noticed anything that exacerbates or relieves her symptoms. MD complaint: chest pain Onset (ago): month(s) Timing of current episode: episodic Prior episodes: Yes Onset: during exertion Pain location: left chest Pain radiation: neck Severity: moderate Quality: heaviness Relieving factors: nothing and rest Exacerbating factors: nothing Associated symptoms: Deny abdominal pain, diaphoresis, dyspnea, fever(s), leg edema, nausea, palpitations, sense of impending doom, syncope or vomiting Treatment prior to arrival: none Review of Systems Const: Denies: fever(s), chills, body aches, change in appetite or diaphoresis ENMT: Denies: throat pain, ear or mastoid pain, nasal discharge or nasal congestion Card: Reports: chest pain; Denies: palpitations or syncope Resp: Denies: dyspnea GI: Denies: abdominal pain, nausea, vomiting, hematemesis or coffee ground emesis : Denies: flank pain, difficulty voiding, dysuria, urinary frequency or u rinary urgency Musc: Reports: neck pain Skin/Breast: Denies: rash or pruritus Neuro: Denies: headache(s) PFSH ED PFSH: Medical History Hypertension Social History Smoking and tobacco status: former smoker Physical Exam Const: EXAM LIMITATIONS: no altered mental status GENERAL APPEARANCE: co operative and comfortable ORIENTATION/CONSCIOUSNESS: Yes awake, Yes oriented to person, Yes oriented to place and Yes oriented to time HENMT: COMMON NORMALS: normocephalic, atraumatic and hearing grossly normal bilaterally HEAD & SCALP: normocephalic and atraumatic Neck/C-Spine: COMMON NORMALS: no JVD Resp: COMMON NORMALS: normal respiratory effort, No retractions, No use of accessory muscles and clear to auscultation bilaterally AUSCULTATION: clear to auscultation bilaterally Cardio: COMMON NORMALS: no JVD, regular rate, regular rhythm and No murmurs present (Cardio) RATE: regular rate RHYTHM: regular rhythm GI: COMMON NORMALS: Soft to palpation and No hepatosplenomegaly present AUSCULTATION: Yes normoactive bowel sounds PALPATION: Yes Soft to palpation, No Tenderness to palpation present (GI), No Guarding due to palpation present (GI) and Yes No hepatosplenomegaly present Extremity: COMMON NORMALS: normal to inspection, capillary refill normal, no clubbing, cyanosis or edema, no calf tenderness and no pedal edema Neuro: SENSORIUM/ORIENTATION: Yes oriented to person, Yes oriented to place and Yes oriented to time Skin: COMMON NORMALS: no rashes or lesions noted GENERAL SKIN EXAM: no rashes or lesions noted Course Vital Signs: Vital signs: Vital Signs Temperature 97.9 F 08/03/21 14:03 Pulse Rate 81 08/03/21 18:16 Respiratory Rate 19 H 08/03/21 18:16 Blood Pressure 142/74 08/03/21 18:16 Pulse Oximetry 95 08/03/21 18:16 MDM - Chest Pain Medical Decision Making Reviewed lab findings EKG showed nothing acute troponins negative discussed different options patient ultimately decided to discharge home we will recommend that she start 81 mg of aspirin daily in addition to that encouraged her to start isosorbide mononitrate 30 mg daily. Return if has further problems. Medical Records I reviewed the patient's medical records. Lab Data I reviewed the patient's lab results. : 08/03/21 14:35 08/03/21 14:35 Radiology Impressions Chest X-Ray 08/03/21 14:00 IMPRESSION: 1. Apparent worsening cardiomegaly. 2. Possible tiny nodule in the right apex. 3. Recommend CT chest to better characterize. This could be obtained on a nonemergent basis. Laboratory Results WBC 4.7 10^3/uL (4.0-10.0) 08/03/21 14:35 RBC 4.44 10^6/uL (4.1-5.3) 08/03/21 14:35 Hgb 12.8 g/dL (11.5-15.3) 08/03/21 14:35 Hct 40.9 % (37.0-47.0) 08/03/21 14:35 MCV 92.1 fl (81-99) 08/03/21 14:35 MCH 28.8 pg (28.0-34.0) 08/03/21 14:35 MCHC 31.3 g/dL (30.0-36.0) 08/03/21 14:35 RDW 13.8 % (12.1-15.1) 08/03/21 14:35 Plt Count 157 10^3/cmm (130-400) 08/03/21 14:35 MPV 12.5 fL (7.4-10.4) H 08/03/21 14:35 Neut % (Auto) 54.4 % 08/03/21 14:35 Lymph % (Auto) 31.7 % 08/03/21 14:35 [place] % (Auto) 11.6 % 08/03/21 14:35 Eos % (Auto) 1.3 % 08/03/21 14:35 Baso % (Auto) 0.8 % 08/03/21 14:35 Neut # (Auto) 2.57 10^3/uL (1.8-7.7) 08/03/21 14:35 Lymph # (Auto) 1.5 10^3/uL (0.8-4.8) 08/03/21 14:35 [place] # (Auto) 0.6 10^3/uL (0.2-0.9) 08/03/21 14:35 Eos # (Auto) 0.1 10^3/uL (0.0-0.8) 08/03/21 14:35 Baso # (Auto) 0.0 10^3/uL (0.0-0.1) 08/03/21 14:35 Nucleated RBC % (auto) 0 % 08/03/21 14:35 Nucleated RBCs # 0.0 /100WBC 08/03/21 14:35 Sodium 131 mmol/L (136-145) L 08/03/21 14:35 Potassium 3.8 mmol/L (3.5-5.1) 08/03/21 14:35 Chloride 95 mmol/L (98-107) L 08/03/21 14:35 Carbon Dioxide 27 mmol/L (22-29) 08/03/21 14:35 Anion Gap 12.8 (5-19) 08/03/21 14:35 BUN 12 mg/dL (8-23) 08/03/21 14:35 Creatinine 0.5 mg/dL (0.5-0.9) 08/03/21 14:35 GFR Calculation Not Reportable 08/03/21 14:35 Glucose 93 mg/dL (65-115) 08/03/21 14:35 Calculated Osmolality 271 mOsm/kg (285-295) L 08/03/21 14:35 Calcium 9.3 mg/dL (8.5-10.5) 08/03/21 14:35 Total Bilirubin 0.3 mg/dL (0.15-1.2) 08/03/21 14:35 AST 24 U/L (0-32) 08/03/21 14:35 ALT 15 U/L (0-33) 08/03/21 14:35 Alkaline Phosphatase 97 IU/L (35-105) 08/03/21 14:35 Troponin T Baseline 11 ng/L (0-10) H 08/03/21 14:35 Troponin T 120 Minute 10.69 ng/L (0-10) H 08/03/21 16:55 Delta Troponin T -0.31 ABS# (0-10) L 08/03/21 16:55 Total Protein 7.4 g/dL (6.6-8.7) 08/03/21 14:35 Albumin 4.3 g/dL (3.5-5.2) 08/03/21 14:35 Globulin 3.1 g/dL (1.3-4.6) 08/03/21 14:35 Urine Color Yellow (Yellow) 08/03/21 16:30 Urine Appearance Clear (CLEAR) 08/03/21 16:30 Urine pH 7 (5-7) 08/03/21 16:30 Ur Specific [place] 1.005 (1.005-1.030) 08/03/21 16:30 Urine Protein Neg (Negative) 08/03/21 16:30 Urine Glucose (UA) Norm (Normal) 08/03/21 16:30 Urine Ketones 1+ (Negative) H 08/03/21 16:30 Urine Blood Neg (Negative) 08/03/21 16:30 Urine Nitrate Negative (Negative) 08/03/21 16:30 Urine Bilirubin Neg (Negative) 08/03/21 16:30 Urine Urobilinogen Norm mg/dL (Negative) 08/03/21 16:30 Ur Leukocyte Esterase Negative (Negative) 08/03/21 16:30 Discharge Plan Discharge Patient Disposition: Home Clinical Impression: Atypical chest pain Condition: Stable Prescriptions: New isosorbide mononitrate 30 mg tablet extended release 24 hr 30 mg PO DAILY Qty: 30 0RF aspirin 81 mg tablet,delayed release (DR/EC) 81 mg PO DAILY Qty: 30 0RF No Action atorvastatin 20 mg tablet 20 mg PO DAILY 0RF tizanidine 4 mg tablet 4 mg PO TID PRN (Reason: Pain) 0RF naproxen sodium 220 mg Capsule 220 mg PO BID PRN (Reason: Pain) 0RF carvedilol 12.5 mg tablet 12.5 mg PO BID 0RF losartan 100 mg tablet 100 mg PO DAILY 0RF Discharge Orders: Discharge ED (Routine); Ordered 08/03/21 Ordered By: Landon Castro Referrals: Pipo Rocha DO [Primary Care Provider] - Discharge Diet: Usual diet Discharge Activity: Limit activity as instructed Patient Instructions: Opioid Safety Activity Restrictions/Additional Instructions: Avoid strenuous activity. Case management migraines. Outpatient Lexiscan sestamibi stress test. Coding Level of Care Code ED Professor Of Journalism for Chg Fwd Exam Comprehensive
[2021-08-03 15:12] LABS: Troponin(5th) Baseline 11 ng/L (0-10)
[2021-08-03 15:13] LABS: Alanine Aminotransferase 15 U/L (0-33); Albumin Level 4.3 g/dL (3.5-5.2); Alkaline Phosphatase 97 IU/L (35-105); Anion Gap 12.8 (5-19); Aspartate Amino Transferase 24 U/L (0-32); Blood Urea Nitrogen 12 mg/dL (8-23); Calcium 9.3 mg/dL (8.5-10.5); Carbon Dioxide 27 mmol/L (22-29); Chloride 95 mmol/L (98-107); Creatinine Clr Calc Pharmacy 49.8831; Globulin 3.1 g/dL (1.3-4.6); Glucose 93 mg/dL (65-115); Osmolality Calculated 271 mOsm/kg (285-295); Potassium 3.8 mmol/L (3.5-5.1); Sodium 131 mmol/L (136-145); Total Bilirubin 0.3 mg/dL (0.15-1.2); Total Protein 7.4 g/dL (6.6-8.7)
[2021-08-03] MEDS: hyDRALAzine 20 mg/mL INJ 1 mL IVP (15:18)
[2021-08-03] MEDS: amlodipine 10 mg Tablet PO (15:18)
--- NOTE | 2021-08-03 15:59 | ECG_ITS ---
[facility] Test Date: 2021-08-03 Pat Name: Zhanna Luis Department: Room: Gender: Female Teacher Music: : 1945 Requested By: Landon Frankel Order Number: [id number] Caitlin MD: Stefanie Mancera M.D. Measurements Intervals [place] Rate: 74 P: 68 [place]: 185 QRS: 81 QRSD: 85 T: 76 QT: 386 QTc: 430 Interpretive Statements SINUS RHYTHM Compared to ECG 08/03/2021 13:59:08 Sinus bradycardia no longer present Electronically Signed On 08-03-2021 22:49:33 CDT by Stefanie Mancera M.D. [id number]
[2021-08-03 16:44] LABS: Add Urine Microscopic? NO; Charge for UA Resulting for Rev
--- NOTE | 2021-08-03 16:47 | PC.NURSE ---
Addendum entered by Indu Blair RN 08/03/21 16:48: Patient in bed, ambulated to bathroom and back. Original Note: Notified Dr. Castro of patient pain. Patient in bed resting with eyes closed.
[2021-08-03 17:18] LABS: Troponin 5 2HR 10.69 ng/L (0-10)
[2021-08-03 17:22] LABS: Urine Color Yellow (Yellow)
[2021-08-03 17:23] LABS: Bilirubin Urine Neg (Negative); Blood Urine Neg (Negative); Glucose Urine UA Norm (Normal); Ketones Urine 1+ (Negative); Leukocyte Esterase Urine Negative (Negative); Nitrate Urine Negative (Negative); Protein Urine Neg (Negative); Specific Gravity, Urine 1.005 (1.005-1.030); Urine Appearance Clear (CLEAR); Urobilinogen Urine Norm (Negative); pH Urine 7 (5-7)
[2021-08-03 17:28] LABS: Troponin 5 2HR Delta -0.31 ABS# (0-10)
--- NOTE | 2021-08-10 18:52 | DCPLANNER ---
Addendum entered by Rosaenne Reed 12/13/21 14:41: patient doesn?t want these tests per Oliva?s note on 11/18/21 Original Note: carbon capture power plant manager had message to schedule an outpatient stress test for patient. carbon capture power plant manager faxed signed order for stress test to centralized scheduling, who will call patient with appointment information.
== END 2021-08-03 18:18 | disposition home or self-care (01) ==
PROVIDERS: Emergency Provider Family Medicine; PCP Electrodiagnostic Medicine
DX: R07.89 Other chest pain (principal); I10 Essential (primary) hypertension
CPT/HCPCS: 71045; 80053; 81003; 84484; 85025; 93005; 96374; 99285; J0360

== ENCOUNTER → 2023-03-01 12:47 | Outpatient (BNVA) | payer MEDICARE, SELFPAY | PROVIDERS: PCP Electrodiagnostic Medicine; Visit Provider Dermatology | DX: D48.5 Neoplasm of uncertain behavior of skin (principal); L57.0 Actinic keratosis; L81.4 Other melanin hyperpigmentation; L57.8 Other skin changes due to chronic exposure to nonionizing radiation | CPT/HCPCS: 11102; 17000; 99203 ==